=== PATIENT | female | born 1980 | race Caucasian/White ===

== ENCOUNTER 2020-01-14 09:30 | Emergency (ER) | payer BC ==
[2020-01-14 09:45] VITALS: BP 125/88; PULSE 74; TEMP 97; BMI 28.6
[2020-01-14] MEDS ORDERED: DIPHTH,PERTUSS(ACELL),TET 0.5 ML DISP.SYRIN IM ONE ×2 (10:15→10:37)
--- NOTE | 2020-01-14 10:38 | PDOC ---
History of Present Illness - General Chief Complaint: Laceration Stated Complaint: FOOT INJURY Time Seen by Provider: 01/14/20 10:01 History Source: Patient Exam Limitations: No Limitations - History of Present Illness Initial Comments: 01/14/20 10:40 Patient is a 39-year-old female who presents to the ED with a right foot laceration that she sustained about 40 minutes prior to arrival. She states she was cooking and her cutting board and knife slipped off the counter and cut the dorsum of her right foot. She states there was a significant amount of bleeding. She denies any numbness or tingling. She is unsure when her last tetanus booster was. She denies any past medical history or allergies to medications. Past History - Medical History Allergies/Adverse Reactions: Allergies Allergy/AdvReac Type Severity Reaction Status Date / Time No Known Allergies Allergy Verified 01/14/20 09:44 Home Medications: Ambulatory Orders Diazepam [Valium -] 5 mg PO BID #6 tablet 05/26/13 Meclizine HCl [Antivert -] 12.5 mg PO TID PRN #20 tablet 05/26/13 No Home Medications 0 dose .ROUTE UTDICT 05/26/13 COPD: No - Surgical History Abdominal Surgery: Yes Cholecystectomy: Yes - Reproductive History Is Patient Now?: No - Psycho-Social/Smoking History Smoking History: Never smoked - Substance Abuse Hx (Audit-C & DAST Scrn) How often the patient has a drink containing alcohol: Never Score: In Men: 4 or > Positive; In Women: 3 or > Positive: 0 Screen Result (Pos requires Nsg. Audit-10AR): Negative Review of Systems - Review of Systems Comments:: 01/14/20 10:42 - Review of Systems Able to Perform ROS?: Yes Constitutional: No: Fever, Chills, Loss of Appetite, Night Sweats, Weakness HEENTM: No: Eye Pain, Vision changes, Ear Pain, Throat Pain, Throat Swelling, Mouth Pain, Difficulty Swallowing Respiratory: No: Cough, Shortness of Breath, Wheezing, Sputum Production Cardiac (ROS): No: Chest Pain, Chest Tightness, Palpitations, Irregular Heart Beat, Edema ABD/GI: No: Nausea, Vomiting, Abdominal Pain, Diarrhea Musculoskeletal: No: Muscle Pain, Back Pain, Joint Pain, Muscle Weakness, Neck Pain Integumentary: No: Lesions, Rash; positive: Right foot laceration Neurological: No: Headache, Numbness, Tingling, Weakness, Speech Difficulties *Physical Exam - Vital Signs Last Vital Signs Temp Pulse Resp BP Pulse Ox 97 F L 74 18 125/88 99 01/14/20 09:38 01/14/20 09:38 01/14/20 09:38 01/14/20 09:38 01/14/20 09:38 - Physical Exam 01/14/20 10:43 - Physical Exam General Appearance: Nourished, Appropriately Dressed, No Distress HEENT: EOMI, Normal Voice, Hearing Grossly Normal Neck: Supple, No Lymphadenopathy (R), No Lymphadenopathy (L), No Rigidity, No Decreased range of motion Respiratory/Chest: Lungs Clear, Normal Breath Sounds. No Respiratory Distress, No Accessory Muscle Use Cardiovascular: Regular Rhythm, Regular Rate, S1, S2 Musculoskeletal: Normal Inspection. No Decreased Range of Motion Extremity: Normal Capillary Refill, Normal Inspection Integumentary: Normal Color, Dry. No Rash; roughly 2 cm laceration to the dorsum of the right foot with mild gaping. No active bleeding. No sign of foreign body. Mild tenderness to palpation. Neurologic: drawer waxer II-XII NML intact, Fully Oriented, Alert, Normal Mood/Affect, Normal Response Procedures - Laceration/Wound Repair Right Dorsal Foot Wound Length: to 2.5 cm Wound Explored: clean Wound's Depth, Shape: superficial, linear Irrigated w/ Saline: Yes Betadine Prep: Yes Anesthesia: 1% Lidocaine Amount of Anesthetic (ccs): 1 Wound Repaired With: Sutures Suture Size/Type: 4:0, nylon Number of Sutures: 5 Layer Closure: No Sterile Dressing Applied: Yes Splint Applied: No Medical Decision Making - Medical Decision Making 01/14/20 10:34 Assessment: Patient is a 39-year-old female with a right foot laceration. Plan: -Tetanus booster ordered -Suture repair performed -Suture instructions given -Patient to follow-up in 1 week for suture removal. She understands and agrees with this treatment plan and she is stable for discharge. Discharge - Discharge Information Problems reviewed: Yes Clinical Impression/Diagnosis: Laceration of right foot Qualifiers: Encounter type: initial encounter Qualified Code(s): S91.311A - Laceration without foreign body, right foot, initial encounter Condition: Stable Disposition: HOME - Follow up/Referral Referrals: Cristina Haney MD [Primary Care Provider] - - Patient Discharge Instructions Patient Printed Discharge Instructions: DI for Laceration Repair Additional Instructions: Keep the wound clean and dry for 24 hours. After 24 hours you can remove the bandage and wash the wound once daily with warm water and soap. Allowed to dry for at least 30 minutes prior to covering the wound again. You should keep the wound uncovered while at home and resting but should keep it covered if you are away from home. A regular Band-Aid will suffice. Return to the emergency department in 7 days to have the sutures removed. - Post Discharge Activity
== END 2020-01-14 10:44 | disposition home or self-care (01) ==
LOC: JERFT 09:30
PROC: 3E0234Z Introduction of Serum, Toxoid and Vaccine into Muscle, Percutaneous Approach (ICD-10-PCS; principal; 2020-01-14)
DX: S91.311A Laceration without foreign body, right foot, initial encounter (principal)
CPT/HCPCS: 90715; 99283-25

== ENCOUNTER 2020-06-11 15:33 | Emergency (ER) | payer BC | END 2020-06-11 17:47 | disposition home or self-care (01) | LOC: JVIRT 15:33 | DX: Z11.52 Encounter for screening for COVID-19 (principal) | CPT/HCPCS: C9803; G2012-GT; U0003 ==

== ENCOUNTER 2020-06-30 12:54 | Emergency (ER) | payer BC | END 2020-06-30 15:38 | disposition home or self-care (01) | LOC: JVIRT 12:54 | DX: Z11.52 Encounter for screening for COVID-19 (principal); R50.9 Fever, unspecified | CPT/HCPCS: C9803; G2012-GT; U0003 ==

== ENCOUNTER 2021-06-14 16:14 | Emergency (ER) | payer BC ==
[2021-06-14 16:36] VITALS: BP 143/93; PULSE 80; TEMP 98.1; BMI 29.4
[2021-06-14] MEDS ORDERED: ACETAMINOPHEN 500 MG TABLET (FP) PO ONE (16:57)
[2021-06-14] MEDS ORDERED: FAMOTIDINE 20 MG TABLET PO ONE (16:57)
[2021-06-14] MEDS ORDERED: MAG HYDROX/AL HYDROX/SIMETH -MYLANTA- ORAL SUSPENSION PO ONE (16:57)
[2021-06-14] MEDS ORDERED: MAG HYDROX/AL HYDROX/SIMETH 30 ML UNIT-DOSE CUP ONE (17:41)
[2021-06-14] MEDS ORDERED: FAMOTIDINE 20 MG TABLET ONE (17:41)
[2021-06-14] MEDS ORDERED: ACETAMINOPHEN 500 MG TABLET (FP) ONE (17:45)
[2021-06-14 18:53] LABS: BASO % 0.7 % (0-2.0); EOS % 2.6 % (0-4.5); HEMATOCRIT 38.5 % (32.4-45.2); HEMOGLOBIN 13.2 GM/dL (10.7-15.3); LYMPH % 38.6 % (8-40); MCH 29.5 pg (25.7-33.7); MCHC 34.2 g/dl (32.0-36.0); MEAN CELL VOLUME 86.3 fl (80-96); MEAN PLT VOLUME 7.1 fl (7.5-11.1); MONO % 7.8 % (3.8-10.2); NEUT % 50.3 % (42.8-82.8); PLATELET COUNT 255 10^3/uL (134-434); RBC 4.46 M/mm3 (3.60-5.2); RDW 12.6 % (11.6-15.6); WHITE BLOOD COUNT 6.5 K/mm3 (4.0-10.0)
[2021-06-14 19:12] LABS: CHLORIDE 107 mmol/L (98-107); SODIUM 138 mmol/L (136-145)
[2021-06-14 19:16] LABS: ALBUMIN 3.8 g/dl (3.4-5.0); ANION GAP 7 MMOL/L (8-16); BLOOD UREA NITROGEN 14.2 mg/dL (7-18); CO2 25 mmol/L (21-32); GLUCOSE,RANDOM 83 mg/dL (74-106)
[2021-06-14 19:19] LABS: CREATININE 0.7 mg/dL (0.55-1.3); SGOT/AST 13 U/L (15-37); SGPT/ALT 17 U/L (13-61)
[2021-06-14 19:21] LABS: BILIRUBIN,TOTAL 0.4 mg/dL (0.2-1); TOT PROT 7.7 g/dl (6.4-8.2)
[2021-06-14 19:22] LABS: ALK PHOS 41 U/L (45-117)
== END 2021-06-14 19:40 | disposition home or self-care (01) ==
LOC: JER 16:14
DX: R07.89 Other chest pain (principal)
CPT/HCPCS: 36415; 71046-TC-FY; 80053; 82550; 84484; 85025; 93005; 93010; 99285-25